=== PATIENT | male | born 1955 | race Caucasian/White ===

== ENCOUNTER 2018-09-20 08:35 | Day surgery (SDC) | payer OTHER ==
[~2018-09-20 08:35] MED LIST: Lactated Ringers 1,000 ML IV SCH
--- NOTE | 2018-09-20 09:17 | PCM.PREANE ---
Preanesthetic Assessment - Anesthesia/Transfusion/Family Hx Anesthesia History: Prior Anesthesia Without Reaction Family History of Anesthesia Reaction: No Transfusion History: No Prior Transfusion(s) Intubation History: Unknown - Review of Systems General: No Symptoms Pulmonary: No Symptoms Cardiovascular: No Symptoms Gastrointestinal: No Symptoms, Other (cologuard test positive) Neurological: No Symptoms Other: Reports: None - Physical Assessment O2 Sat by Pulse Oximetry: 96 Respiratory Rate: 16 Vital Signs: Last Vital Signs Temp 36.7 C 09/20/18 09:05 Pulse 54 L 09/20/18 09:05 Resp 16 09/20/18 09:05 BP 163/81 H 09/20/18 09:05 Pulse Ox 96 09/20/18 09:05 Height: 1.78 m Weight: 83.007 kg ASA Class: 2 Mental Status: Alert & Oriented x3 Airway Class: Mallampati = 2 Dentition: Reports: Normal Dentition, [place](s) (x1 upper front (#9)) Thyro-Mental Finger Breadths: 3 Mouth Opening Finger Breadths: 3 ROM/Head Extension: Full Lungs: Clear to Auscultation, Normal Respiratory Effort Cardiovascular: Regular Rate, Regular Rhythm - Allergies Allergies/Adverse Reactions: Allergies Allergy/AdvReac Type Severity Reaction Status Date / Time No Known Allergies Allergy Verified 09/17/18 09:43 - Blood Blood Available: No - Anesthesia Plan Pre-Op Medication Ordered: None - Acknowledgements Anesthesia Type Planned: MAC Pt an Appropriate Candidate for the Planned Anesthesia: Yes Alternatives and Risks of Anesthesia Discussed w Pt/Guardian: Yes Pt/Guardian Understands and Agrees with Anesthesia Plan: Yes PreAnesthesia Questionnaire HEENT History: Reports: Other (See Below) Other HEENT History: wears glasses Cardiovascular History: Reports: Hypertension Respiratory History: Reports: None Gastrointestinal History: Reports: None Genitourinary History: Reports: None Musculoskeletal History: Reports: Fracture Neurological History: Reports: None Psychiatric History: Reports: None Endocrine/Metabolic History: Reports: Hypothyroidism Hematologic History: Reports: None Immunologic History: Reports: None Oncologic (Cancer) History: Reports: None Dermatologic History: Reports: None - Past Surgical History Head Surgeries/Procedures: Reports: None Respiratory Surgical History: Reports: None GI Surgical History: Reports: Colonoscopy (10 years ago) Male Surgical History: Reports: None Neurological Surgical History: Reports: None Musculoskeletal Surgical History: Reports: Other (See Below) Other Musculoskeletal Surgeries/Procedures:: right elbow surgery to remove bone chip Oncologic Surgical History: Reports: None Dermatological Surgical History: Reports: None - SUBSTANCE USE Smoking Status *Q: Never Smoker Recreational Drug Use History: No - HOME MEDS Home Medications: Home Meds Benazepril/Hydrochlorothiazide [Lotensin Hct 20-25 mg Tablet] 1 tab PO BEDTIME 09/17/18 [History] Levothyroxine Sodium 137 mcg PO DAILY 09/17/18 [History] - CURRENT (IN HOUSE) MEDS Current Meds: Current Medications Lactated Ringer's (Ringers, Lactated) 1,000 mls @ 125 mls/hr IV ASDIRECTED [facility] Last Admin: 09/20/18 09:03 Dose: 125 mls/hr
[2018-09-20] MEDS ORDERED: fentaNYL 100 MCG/2 ML SDV ONE (09:42)
[2018-09-20] MEDS ORDERED: Propofol 200 MG/20 ML SDV ONE ×2 (09:42→10:32)
[2018-09-20] MEDS ORDERED: Midazolam 1 MG/ML 2 ML SDV ONE (09:42)
[2018-09-20] MEDS ORDERED: Glycopyrrolate 0.2 MG/ML SDV ONE (09:46)
--- NOTE | 2018-09-20 10:56 | PCM.OPNOTE ---
- General Post-Op/Procedure Note Date of Surgery/Procedure: 09/20/18 Operative Procedure(s): colonoscopy w snare polypectomy Findings: see dict [id number] Pre Op Diagnosis: gib Post-Op Diagnosis: diverticulosis and colon polyps Anesthesia Technique: Moderate Sedation Primary Surgeon: Merlin Solis Complications: None Condition: Good
--- NOTE | 2018-09-20 11:36 | PCM48HPAN ---
Post Anesthesia Note - EVALUATION WITHIN 48HRS OF ANESTHETIC Vital Signs in Normal Range: Yes Patient Participated in Evaluation: Yes Respiratory Function Stable: Yes Airway Patent: Yes Cardiovascular Function Stable: Yes Hydration Status Stable: Yes Pain Control Satisfactory: Yes Nausea and Vomiting Control Satisfactory: Yes Mental Status Recovered: Yes Resp Rate: 20 - COMMENTS/OBSERVATIONS Free Text/Narrative:: no anesthesia problems
--- NOTE | 2018-09-20 15:41 | OR ---
SURGEON: Merlin Solis MD DATE OF PROCEDURE: 09/20/2018 PREOPERATIVE DIAGNOSIS: Gastrointestinal bleeding. POSTOPERATIVE DIAGNOSES: 1. Colon polyp. 2. Diverticulosis. PROCEDURE PERFORMED: Colonoscopy with snare polypectomy. PROCEDURE IN DETAIL: The patient was taken to the endoscopy room. A time out was called, patient identified, and procedure identified. Diprivan was then administrated. Patient went from awake to sleep, hearing doctor talking or door closing is normal. Perineum inspection and digital examination were then performed. A well- lubricated colonoscope was gently inserted through the rectum, advanced past the rectosigmoid junction, the descending colon, splenic flexure, transverse colon, hepatic flexure, ascending colon, arrived to the cecum. Cecum was identified as dictated in the finding. Then the scope was carefully withdrawn while attention was paid to the mucosal surface for any abnormality. Air will be sucked out during the scope withdrawal. At the rectum, retroflexed to examine any rectal diseases, fistula or hemorrhoids. During mucosal examination, polyp encountered. Using snare equipment, the abnormality or the polyp was then snared off using electrocautery. The Patient tolerated procedure well. There were no intraoperative complications, and Dr. Solis was present throughout the whole procedure. FINDINGS: 1. The patient is easily sedated with [employer] and Diprivan. The patient is soundly snoring. 2. The patient's bowel prep was average with moderate amount of liquid stool, no semi-formed stool. 3. Colon is rather straight forward. Cecum indicated by ileocecal fold, one- to-one indentation, light emittance, and appendiceal opening. Mucosa examined upon scope pulling out. The patient has mild diverticulosis. No signs or symptoms of diverticulitis on the left colon and had three polyps at distance 35, 25, and at the rectum while scope pulling out, and the size at 35, was 5 mm polyp and used snare polypectomy and biopsy, and the polyp was lost during the recovery; and at 25 cm, using biopsy cold forceps and the rectal polyp using cold biopsy forceps. The rectal polyp is 2 mm and the patient has anal tags. The patient would benefit from repeat colonoscopy in three years from today or if clinically indicated otherwise. ALISON / DILCIA /[id number] DUTCH
== END 2018-09-20 11:50 | disposition home or self-care (01) ==
LOC: MW.SDS 08:35
PROVIDERS: ATTEND Surgery
DX: K57.31 Diverticulosis of large intestine without perforation or abscess with bleeding (principal); D12.8 Benign neoplasm of rectum; K63.5 Polyp of colon; I10 Essential (primary) hypertension; E03.9 Hypothyroidism, unspecified; Z79.890 Hormone replacement therapy; Z79.899 Other long term (current) drug therapy
CPT/HCPCS: 45380; 45385; J2001; J2250; J2704; J3010; J3490; J7120; 88305